=== PATIENT | female | born 1980 | race Caucasian/White ===

== ENCOUNTER 2016-12-11 16:49 | Emergency (ER) | payer OTHER ==
[2016-12-11 17:20] LABS: EOSINOPHIL COUNT 0.1 K/uL (0-0.3); HEMATOCRIT 41.7 % (36.0-46.0); IMMATURE GRANULOCYTE (%) 0.3 % (0.0-0.7); INSTRUMENT ABS NEUTROPHIL CT 4.9 K/uL; LYMPHOCYTE COUNT 1.5 K/uL (1.0-2.8); MCH 28.3 PG (29.0-34.0); MCHC 32.6 G/DL (30.0-36.0); MCV 86.9 FL (83-99); MEAN PLAT.VOLUME 10.1 uM^3 (9.5-12.4); MONOCYTE (%) 4.4 % (3-12); MONOCYTE COUNT 0.3 K/uL (0-0.8); NEUTROPHIL (%) 72.1 % (45-76); NEUTROPHIL COUNT 4.9 K/uL (1.8-6.4); PLATELET COUNT 198 K/uL (156-360); RBC DIS.WIDTH-CV 12.7 % (11.8-14.6); WHITE BLOOD COUNT 6.9 K/uL (4.1-10.2)
[2016-12-11 17:30] LABS: CHLORIDE 107 mEq/L (99-109); POTASSIUM 3.5 mEq/L (3.7-5.4); SODIUM 142 mEq/L (136-147)
[2016-12-11 17:32] LABS: GLUCOSE 107 mg/dL (70-99)
[2016-12-11 17:33] LABS: ANION GAP 11 MEQ/L (2-14)
[2016-12-11 17:34] LABS: TOTAL BILIRUBIN 0.5 mg/dL (0.0-1.0)
[2016-12-11 17:36] LABS: ALKALINE PHOSPHATASE 48 IU/L (3-129)
[2016-12-11 17:37] LABS: DIRECT BILIRUBIN 0.2 mg/dL (0.0-0.3); UREA NITROGEN (BUN) 12 mg/dL (9-23)
[2016-12-11 17:42] LABS: GFR ESTIMATE (CALCULATED) > 59 mL/min/
[2016-12-11 18:20] LABS: AHBS INDEX 775.15; HEPATITIS B SURFACE ANTIBODY REACTIVE; HIV INDEX 0.06; HIV-1/2 AB/AG COMBO Nonreactive; HPCA INDEX 0.16
== END 2016-12-11 18:04 | disposition home or self-care (01) ==
LOC: EME 16:49
PROVIDERS: Nurse Practitioner Family
DX: Z04.2 Encounter for examination and observation following work accident (principal); Z77.21 Contact with and (suspected) exposure to potentially hazardous body fluids
CPT/HCPCS: 80048; 80076; 85025; 86703; 86706; 86803; 99281; 99282